=== PATIENT | male | born 1965 | race Caucasian/White ===

== ENCOUNTER 2019-07-15 20:39 | Emergency (ER) | payer OTHER ==
[~2019-07-15] VITALS: Ht 177.8 cm; Wt 61.2 kg
[2019-07-15 20:39] VITALS: BP 151/86
--- NOTE | 2019-07-15 20:59 | NUR ---
BIBRA TO ER BED 11. AA OX4. NO RESP DISTRESS NOTED. AMBULATORY. C/O HERNIA THAT POPPED OUT 2 HOURS AGO. UPON ASSESSMENT, PT'S HERNIA HAVE ALREADY RESOLVED. ICE PACK PROVIDED ASA PER ORDERED BY ELLEN DUFFY.
--- NOTE | 2019-07-15 21:07 | NUR ---
Patient discharged to home in stable condition. Written and verbal after care instructions given. Patient verbalizes understanding of instruction. Pt ambulatory with a steady gait. Homeless waiver signed by the pt
== END 2019-07-15 21:09 | disposition home or self-care (01) ==
LOC: ER 20:41
DX: K46.9 Unspecified abdominal hernia without obstruction or gangrene (principal); Z95.818 Presence of other cardiac implants and grafts; Z59.0 Homelessness

== ENCOUNTER 2019-07-15 22:49 | Emergency (ER) | payer OTHER ==
[~2019-07-15] VITALS: Ht 177.8 cm; Wt 61.2 kg
[2019-07-16 01:15] VITALS: BP 140/90
== END 2019-07-16 01:51 | disposition home or self-care (01) ==
LOC: ER 22:49
DX: Z76.0 Encounter for issue of repeat prescription (principal); Z95.818 Presence of other cardiac implants and grafts

== ENCOUNTER 2019-12-26 02:02 | Emergency (ER) | payer MEDICAID, OTHER ==
[~2019-12-26] VITALS: Ht 177.8 cm; Wt 59.0 kg
--- NOTE | 2019-12-26 02:15 | NUR ---
PT CAME TO THE ED C/O L FOOT PAIN +SWELLING. PT ALSO COMPLAINS OF L SHOULDER PAIN S/P FALL TODAY. PT AAOX4, VSS, RESPIRATIONS EVEN AND UNLABORED ON RA W/ NAD NOTED. PT CONNECTED TO THE MONITOR AND POX
--- NOTE | 2019-12-26 02:24 | NUR ---
XRAY AT BEDSIDE
[2019-12-26] MEDS ORDERED: KETOROLAC TROMETHAMINE 15 MG/ML VIAL ONE (03:00)
[2019-12-26] MEDS ORDERED: HYDROCODONE/APAP 10/325MG 1 EA TABLET PO ONE (03:00)
[2019-12-26] MEDS ORDERED: CEFTRIAXONE 1GM BAG (ER ONLY) 50 ML IV ONE ×2 (03:00)
[2019-12-26] MEDS ORDERED: KETOROLAC TROMETHAMINE INJ 30 MG/ML VIAL IV ONE (03:00)
[2019-12-26] MEDS ORDERED: HYDROCODONE/APAP 10/325MG 1 EA TABLET ONE (03:00)
--- NOTE | 2019-12-26 03:06 | NUR ---
PT MEDICATED ORDERED
[2019-12-26 03:09] LABS: BASOPHILS % (AUTO) 0.6 % (0.0-2.0); EOSINOPHILS % (AUTO) 1.6 % (0.0-6.0); HEMATOCRIT 29 % (39-51); HEMOGLOBIN 9.1 g/dL (13.5-17.5); LYMPHOCYTES # (AUTO) 1.3 /CMM (0.8-4.8); LYMPHOCYTES % (AUTO) 20.7 % (20.0-44.0); MEAN CORPUSCULAR HGB CONC 32 g/dl (31.0-36.0); MEAN CORPUSCULAR VOLUME 66 fL (80-96); MONOCYTES # (AUTO) 0.6 /CMM (0.1-1.30); MONOCYTES % (AUTO) 9.2 % (2.0-12.0); NEUTROPHILS # (AUTO) 4.4 /CMM (1.8-8.9); NEUTROPHILS % (AUTO) 67.9 % (43.0-81.0); PLATELET COUNT (AUTO) 393 /CMM (150-450); RED BLOOD CELL COUNT(AUTO) 4.35 MIL/uL (4.5-6.0); WHITE BLOOD COUNT (AUTO) 6.5 K/uL (4.3-11.0)
[2019-12-26 03:17] LABS: CALCIUM, SERUM 8.2 mg/dL (8.5-10.1); CREATININE 0.9 mg/dL (0.6-1.3); POTASSIUM 3.9 mmol/L (3.5-5.1)
[2019-12-26 03:23] LABS: ALBUMIN 2.5 g/dL (3.4-5.0); BILIRUBIN,TOTAL 0.2 mg/dL (0.2-1.0); TOTAL PROTEIN, SERUM 6.3 g/dL (6.4-8.2)
--- NOTE | 2019-12-26 05:16 | NUR ---
PT SLEEPING COMFORTABLY IN BED. VSS. NO ACUTE DISTRESS NOTED.
--- NOTE | 2019-12-26 06:30 | NUR ---
SHOULDER SLING PLACED
--- NOTE | 2019-12-26 06:39 | NUR ---
Patient discharged to home in stable condition. Written and verbal after care instructions given. Patient verbalizes understanding of instruction and RX. IV removed. Catheter intact and site benign. Pressure and 4x4 applied to site. No bleeding noted. Pt ambulatd with steady gait.
[2019-12-26 06:40] VITALS: BP 124/73
== END 2019-12-26 06:40 | disposition home or self-care (01) ==
LOC: ER 02:05
DX: S42.032A Displaced fracture of lateral end of left clavicle, initial encounter for closed fracture (principal); L03.116 Cellulitis of left lower limb; Z59.0 Homelessness; Y08.89XA Assault by other specified means, initial encounter; Y93.89 Activity, other specified; Y92.89 Other specified places as the place of occurrence of the external cause; Y99.8 Other external cause status
CPT/HCPCS: 36415; 73030; 73610; 73630; 80048; 80076; 85025; 86140; 87040 ×2; 96365; 96375; 99284; J0696; J1885

== ENCOUNTER 2020-03-22 05:45 | Emergency (ER) | payer MEDICAID ==
[~2020-03-22] VITALS: Ht 177.8 cm; Wt 59.0 kg
--- NOTE | 2020-03-22 05:59 | NUR ---
BIB EMS C/O L SHOULDER PAIN AND L FOOT PAIN X COUPLE HOURS. FOUND SLEEPING INFRONT OF GAS STATION. TO ER BED 2
[2020-03-22] MEDS ORDERED: IBUPROFEN 600 MG TABLET ONE (06:29)
[2020-03-22] MEDS: IBUPROFEN 600 MG TABLET PO ONE (06:32)
[2020-03-22] MEDS ORDERED: CEFTRIAXONE 1 G VIAL ONE (06:48)
[2020-03-22] MEDS ORDERED: LIDOCAINE /MPF 1% VIAL 5 ML VIAL ONE (06:50)
[2020-03-22 06:55] VITALS: BP 134/64
--- NOTE | 2020-03-22 06:55 | NUR ---
Patient discharged to home in stable condition. Written and verbal after care instructions given. Patient verbalizes understanding of instruction.
[2020-03-22] MEDS ORDERED: CEFTRIAXONE 1 G VIAL IM ONE (07:00)
--- NOTE | 2020-03-22 07:03 | NUR ---
rocephin 1 g injection administered prior to d/c
== END 2020-03-22 06:56 | disposition home or self-care (01) ==
LOC: ER 05:46
DX: S42.032A Displaced fracture of lateral end of left clavicle, initial encounter for closed fracture (principal); S90.822A Blister (nonthermal), left foot, initial encounter; Z95.818 Presence of other cardiac implants and grafts; W18.39XA Other fall on same level, initial encounter; Y93.89 Activity, other specified; Y92.89 Other specified places as the place of occurrence of the external cause; Y99.8 Other external cause status
CPT/HCPCS: 73030; 96372; 99283; J0696; J3490

== ENCOUNTER 2020-10-24 17:04 | Emergency (ER) | payer MEDICAID ==
[~2020-10-24] VITALS: Ht 170.2 cm; Wt 59.9 kg
--- NOTE | 2020-10-24 17:08 | NUR ---
bibra 78 from [facility] c/o L sided chest pain x "couple of hours." Patient a/ox4, breathing even and unlabored, no sob noted. Patient moaning, pt sts he might be having withdrawal symptoms. 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
[2020-10-24] MEDS ORDERED: IV NS 0.9% 1,000 ML IV ONE ×2 (17:30→21:00)
--- NOTE | 2020-10-24 17:35 | NUR ---
EMT AT BEDSIDE FOR EKG.
[2020-10-24 17:45] LABS: BASOPHILS % (AUTO) 0.2 % (0.0-2.0); EOSINOPHILS % (AUTO) 0.7 % (0.0-6.0); HEMATOCRIT 28 % (39-51); LYMPHOCYTES # (AUTO) 0.8 /CMM (0.8-4.8); LYMPHOCYTES % (AUTO) 7.5 % (20.0-44.0); MEAN CORPUSCULAR HGB CONC 32 g/dl (31.0-36.0); MEAN CORPUSCULAR VOLUME 78 fL (80-96); MONOCYTES # (AUTO) 0.7 /CMM (0.1-1.30); MONOCYTES % (AUTO) 6.4 % (2.0-12.0); NEUTROPHILS # (AUTO) 9.4 /CMM (1.8-8.9); NEUTROPHILS % (AUTO) 85.2 % (43.0-81.0); PLATELET COUNT (AUTO) 419 /CMM (150-450); RED BLOOD CELL COUNT(AUTO) 3.62 MIL/uL (4.5-6.0); WHITE BLOOD COUNT (AUTO) 11.1 K/uL (4.3-11.0)
[2020-10-24 18:02] LABS: CALCIUM, SERUM 8.2 mg/dL (8.5-10.1); CREATININE 0.6 mg/dL (0.6-1.3)
[2020-10-24 18:03] LABS: POTASSIUM 2.4 mmol/L (3.5-5.1)
[2020-10-24 18:04] LABS: ALANINE AMINOTRANSFERASE 19 U/L (12-78); ALBUMIN 2.6 g/dL (3.4-5.0); ALCOHOL, BLOOD < 3 mg/dL (0-0); ALKALINE PHOSPHATASE 88 U/L (46-116); ASPARTATE AMINOTRANSFERASE 25 U/L (15-37); BILIRUBIN,DIRECT 0.1 mg/dL (0.0-0.2); BILIRUBIN,TOTAL 0.3 mg/dL (0.2-1.0); MAGNESIUM 1.4 mg/dL (1.8-2.4); TOTAL PROTEIN, SERUM 5.9 g/dL (6.4-8.2)
[2020-10-24] MEDS ORDERED: POTASSIUM CL. PREMIX PERIPHER. 200 ML ONE (18:17)
[2020-10-24] MEDS ORDERED: Magnesium 1GM/D5W 100ML PREMIX 200 ML IV ONE (18:17)
[2020-10-24] MEDS ORDERED: FERR325T23 PO (18:22)
[2020-10-24] MEDS ORDERED: ALPR0.255 PO (18:22)
[2020-10-24] MEDS ORDERED: LISI-768 PO (18:22)
[2020-10-24] MEDS ORDERED: DIGO125T PO (18:22)
[2020-10-24] MEDS ORDERED: CARV6.252 PO (18:22)
[2020-10-24] MEDS ORDERED: GABA-532 PO (18:22)
[2020-10-24] MEDS ORDERED: DOCU-141 PO (18:22)
[2020-10-24] MEDS ORDERED: LOSA25TA27 PO (18:22)
[2020-10-24] MEDS ORDERED: HYDR4TAB4 PO (18:22)
[2020-10-24] MEDS ORDERED: VENL37.55 PO (18:22)
[2020-10-24] MEDS ORDERED: ATOR40TA PO (18:22)
[2020-10-24] MEDS ORDERED: ASPI-1169 PO (18:22)
[2020-10-24] MEDS ORDERED: ESCI10TA PO (18:22)
--- NOTE | 2020-10-24 18:22 | NUR ---
HOME MEDICATION INFORMATION PARTIALLY OBTAINED FROM THE PATIENT. PER PATIENT, TO OBTAINED INFORMATION FROM [facility] ([phone]). PER STAFF AT THE FACILITY, PATIENT ALREADY BEEN D/C 2 DAYS AGO. UNABLE TO PROVIDE INFORMATION DUE TO MEDICAL RECORDS IS ALREADY CLOSED AT THIS TIME.
[2020-10-24] MEDS ORDERED: ASPIRIN 325 MG TABLET PO ONE (18:30)
[2020-10-24] MEDS ORDERED: POTASSIUM CHLORIDE 20 MEQ TAB.PRT.SR PO ONE ×2 (18:30→18:48)
[2020-10-24] MEDS: POTASSIUM CL. PREMIX PERIPHER. 50 ML IV SCH ×4 (18:41→22:40)
[2020-10-24] MEDS ORDERED: IOHEXOL-350 100 ML VIAL IV ONE ×2 (18:47→21:30)
[2020-10-24] MEDS ORDERED: IV NS 0.9% 250 ML IV ONE ×2 (18:48→21:30)
[2020-10-24] MEDS ORDERED: ASPIRIN 325 MG TABLET ONE (18:49)
[2020-10-24 18:52] LABS: BILIRUBIN,URINE Negative (NEGATIVE); COLOR,URINE DARK YELLOW (YELLOW); LEUKOCYTE ESTERASE ,URINE Negative (NEGATIVE); NITRITE, URINE Negative (NEGATIVE); PH,URINE 5.5 (5.0-8.0); PROTEIN,URINE Negative (NEGATIVE); UGLUCOSE Negative (NEGATIVE); UROBILINOGEN,URINE 0.2 EU/dL (0.2)
--- NOTE | 2020-10-24 18:56 | NUR ---
PATIENT IS REFUSING A SECOND PERIPHERAL IV LINE. EXPLAINED RISKS AND BENEFITS.
[2020-10-24] MEDS ORDERED: MAG HYDROX/AL HYDROX/SIMETH 30 ML UDC PO PRN (19:00)
[2020-10-24] MEDS ORDERED: HYDROCODONE/APAP 5/325MG TABLET PO PRN (19:00)
[2020-10-24] MEDS ORDERED: ACETAMINOPHEN 325 MG TABLET PO PRN (19:00)
[2020-10-24] MEDS ORDERED: AZITHROMYCIN 500 MG in IV D5W 250 ML IV SCH (19:00)
[2020-10-24] MEDS ORDERED: ENOXAPARIN SODIUM 60 MG/0.6 ML DISP.SYRIN SQ ONE (19:00)
[2020-10-24] MEDS ORDERED: ALPRAZOLAM 0.25 MG TABLET PO PRN (19:00)
[2020-10-24] MEDS ORDERED: CEFTRIAXONE 1 G in IV D5W 50 ML IV SCH (19:00)
[2020-10-24] MEDS ORDERED: IV NS 0.9% 1,000 ML IV PRN (19:00)
[2020-10-24] MEDS ORDERED: MAGNESIUM HYDROXIDE 30 ML UDC PO PRN (19:00)
[2020-10-24] MEDS ORDERED: ONDANSETRON HCL/PF 4 MG/2 ML VIAL IVP PRN (19:00)
[2020-10-24] MEDS ORDERED: MORPHINE SULFATE INJ 2 MG/ML DISP.SYRIN IV PRN (19:00)
[2020-10-24] MEDS ORDERED: LORAZEPAM INJ 2 MG/ML VIAL IV PRN (19:00)
[2020-10-24] MEDS ORDERED: Z GUARD REMEDY 2 OZ OINT TP PRN (19:00)
--- NOTE | 2020-10-24 19:00 | NUR ---
COVID SWAB SENT. PATIENT IS UNCOOPERATIVE WITH CARE.
--- NOTE | 2020-10-24 19:05 | NUR ---
rec;d report from JULIEN Owens for poppy
[2020-10-24] MEDS: Magnesium 1GM/D5W 100ML PREMIX 100 ML IV SCH ×2 (20:20→22:30)
[2020-10-24] MEDS ORDERED: LORAZEPAM INJ 2 MG/ML VIAL ONE (20:39)
[2020-10-24] MEDS ORDERED: LORAZEPAM INJ 2 MG/ML VIAL IV ONE (21:00)
[2020-10-24] MEDS ORDERED: ONDANSETRON HCL/PF 4 MG/2 ML VIAL ONE (21:28)
--- NOTE | 2020-10-24 21:29 | NUR ---
verbal order for 4mg zofran. noted and carried out
[2020-10-24] MEDS ORDERED: ONDANSETRON HCL/PF - ER 4 MG/2 ML VIAL IV ONE (21:30)
--- NOTE | 2020-10-24 21:30 | NUR ---
taken to ct
--- NOTE | 2020-10-24 21:37 | NUR ---
returned from ct
--- NOTE | 2020-10-24 23:44 | NUR ---
SPOKE TO [facility]; ACCEPTED AT [facility]. [facility]URNET[facility], WITH CALL BACK WITH ROOM ASSIGN AND ETA FOR TRANSPORT
--- NOTE | 2020-10-25 01:04 | NUR ---
[facility]; BY JULES BURNETT ROOM [id number] REPORT [phone]
--- NOTE | 2020-10-25 01:06 | NUR ---
WILL CALL BACK FOR [facility] TRANSPORT ETA
--- NOTE | 2020-10-25 01:14 | NUR ---
[facility] ETA [id number]
--- NOTE | 2020-10-25 01:39 | NUR ---
GAVE REPORT TO JULIEN BARBOZA FOR YANIRA
[2020-10-25 03:10] VITALS: BP 129/66
--- NOTE | 2020-10-25 03:19 | NUR ---
gave report to EMS
[2020-10-25] MEDS ORDERED: ONDANSETRON HCL/PF 4 MG/2 ML VIAL ONE (03:32)
[2020-10-25] MEDS ORDERED: ASPIRIN 81 MG TAB.CHEW PO SCH (09:00)
[2020-10-25] MEDS ORDERED: FERROUS SULFATE (325 MG) 325 MG/TAB TABLET PO SCH (09:00)
[2020-10-25] MEDS ORDERED: VENLAFAXINE XR 37.5 MG CAP.SR.24H PO SCH (09:00)
[2020-10-25] MEDS ORDERED: DOCUSATE SODIUM 100 MG CAPSULE PO SCH (09:00)
[2020-10-25] MEDS ORDERED: CARVEDILOL 6.25 MG TABLET PO SCH (09:00)
[2020-10-25] MEDS ORDERED: GABAPENTIN 100 MG CAPSULE PO SCH (09:00)
[2020-10-25] MEDS ORDERED: ESCITALOPRAM OXALATE (10 MG) 10 MG TABLET PO SCH (09:00)
[2020-10-25] MEDS ORDERED: LISINOPRIL (5MG) 5 MG TABLET PO SCH (09:00)
[2020-10-25] MEDS ORDERED: LOSARTAN POTASSIUM 25 MG TABLET PO SCH (09:00)
[2020-10-25] MEDS ORDERED: DIGOXIN 0.125 MG TABLET PO SCH (09:00)
[2020-10-25] MEDS ORDERED: ATORVASTATIN 40 MG TABLET PO SCH (18:00)
== END 2020-10-25 03:19 | disposition short-term general hospital (02) ==
LOC: ER 17:10
DX: R07.9 Chest pain, unspecified (principal); E87.6 Hypokalemia; E83.42 Hypomagnesemia; F19.10 Other psychoactive substance abuse, uncomplicated; D64.9 Anemia, unspecified; E86.0 Dehydration; Z20.822 Contact with and (suspected) exposure to COVID-19; R94.31 Abnormal electrocardiogram [ECG] [EKG]; R00.0 Tachycardia, unspecified; Z95.1 Presence of aortocoronary bypass graft; G89.4 Chronic pain syndrome; I25.10 Atherosclerotic heart disease of native coronary artery without angina pectoris; Z59.0 Homelessness; F17.200 Nicotine dependence, unspecified, uncomplicated
CPT/HCPCS: 36415; 71045; 71275; 80048; 80076; 80307; 80320; 81003; 83735; 84145; 84484 ×2; 85025; 85378; 87081; 87426; 93005; 96361; 96365; 96366; 96368; 96375; 96376; 99291; C9803 ×2; J2060; J2405 ×3; J3475; J3480; J7030 ×2; J7050 ×2; Q9967 ×2; U0003; G0480